=== PATIENT | female | born 1940 | race Caucasian/White ===

== ENCOUNTER → 2021-02-07 | Outpatient (CLI) | payer MEDICARE, BC | LOC: M.CT 10:56 | PROVIDERS: ATTEND Internal Medicine Cardiovascular Disease | DX: I35.0 Nonrheumatic aortic (valve) stenosis (principal); I25.10 Atherosclerotic heart disease of native coronary artery without angina pectoris; M47.814 Spondylosis without myelopathy or radiculopathy, thoracic region ==

== ENCOUNTER 2021-07-19 19:36 | Observation (INO) | payer MEDICARE, BC ==
[~2021-07-19] VITALS: Ht 170.2 cm; Wt 83.0 kg
--- NOTE | ~2021-07-19 | CON ---
[address] [address] CONSULTATION Name: JOSE ESQUIVEL Room: [place] [address] ADM IN M.R.#: [id number] Admission: 07/20/21 Attend Phys: Mildred Chavarria MD Discharge: Date of : 44 Report #: [id number] THIS REPORT FOR: cc: Matt Rinaldi MD, Matthew W. MD Blick, David R. MD [facility] ~ cc: Matt Rinaldi MD DATE OF CONSULTATION: 07/20/2021 CARDIOLOGY CONSULTATION HISTORY OF PRESENT ILLNESS: The patient is a 80-year-old white female who I was asked to see in the hospital after she had a dizzy spell. The history is obtained from the patient as well as some old records. The patient notes that her primary care physician, Dr. Rinaldi, noticed a heart murmur and referred her to Dr. Gilmore. She apparently had an echocardiogram that showed no significant valvular disease. She also had a carotid Doppler study that showed some plaque formation. On 06/26, she apparently felt lightheaded and fell and broke her ankle. She now has a boot. She did not require surgery. Because of this lightheaded spell and a fall, Dr. Gilmore had her wear a senior statistical programmer that was turned in last week. She was doing well until last night, she was at home when she again felt lightheaded and her caught her before she fell. She denied any recent vomiting, diarrhea or bleeding. She denied any recent fever or cough. She has had no significant chest pain. She apparently did have a stress test in the past that was unremarkable. She denies any history of exertional dyspnea, palpitations. Her called the ambulance last night. She was brought here for further evaluation and treatment. PAST MEDICAL HISTORY: She had tonsillectomy, appendectomy, shoulder surgery, hypertension, diabetes, hyperlipidemia. MEDICATIONS: Propranolol, simvastatin, Xanax for anxiety, amlodipine. ALLERGIES: SHE HAS A PREVIOUS INTOLERANCE TO MORPHINE. FAMILY HISTORY: Her father had a stroke. SOCIAL HISTORY: She is . She and her live in [place]. She stays active at home working on a treadmill and cutting wood. She quit smoking in 1984. Rarely drinks alcohol. REVIEW OF SYSTEMS: She has had no history of stroke, asthma, liver disease, kidney disease, cancer, psychiatric illness, [place] [address] CONSULTATION Name: JOSE ESQUIVEL Room: [address]#: [id number] Admission: 07/20/21 Attend Phys: Mildred Chavarria MD Discharge: Date of : 44 Report #: [id number] PHYSICAL EXAMINATION: GENERAL: Revealed an elderly female lying in a stretcher. She appeared in no distress. VITAL SIGNS: She had a blood pressure of 140/60, pulse is 90, she is afebrile. HEENT: She was anicteric. Conjunctivae pink. Mucous membranes moist. NECK: Veins not distended. Bilateral radiating systolic murmur noted in the carotids. Neck is supple. CHEST: Clear to auscultation. HEART: Regular rate and a grade 3 systolic ejection murmur along the left sternal border. ABDOMEN: Soft. EXTREMITIES: Had no edema. Dorsalis pedis pulse 1+ bilaterally. SKIN: Cool and dry. NEUROLOGIC: Nonfocal. DIAGNOSTIC DATA: Her ECG showed a sinus rhythm with T-wave inversion in lead aVL. Her workup in the Emergency Room last night, she had a CT scan of the head performed without contrast that showed no acute abnormality. She had a chest x-ray that showed normal heart size and clear lung butterfield. Carotid Doppler study performed today showed a 50-69% stenosis of the right internal carotid artery. LABORATORY DATA: Her lab work, creatinine 1.0. High-sensitivity troponin was only 22. Her hematocrit 38.5. Her COVID antigen stat test was negative. Urinalysis: Trace blood, negative for leukocytes. IMPRESSION AND RECOMMENDATIONS: 1. Lightheadedness spell, reason unclear. Okay to discharge the patient. She recently wore a senior statistical programmer. She is going to follow up with my partner, Dr. Gilmore, next week to review the monitor. 2. Diabetes. The patient is on insulin. 3. Hypertension. The patient is on a calcium paige and beta paige. 4. Hyperlipidemia. The patient is on a statin drug. 5. Moderate carotid stenosis. Recommend followup. 6. Aortic stenosis. The patient followed by Dr. Gilmore. I think it is reasonable at this time to discharge the patient from the Emergency Room and have her follow up with my partner, Dr. Gilmore, next week. By: [id number] [id number] Hernandez MD, [facility] /nt
[2021-07-19 19:39] VITALS: BP 162/138
[2021-07-19] MEDS ORDERED: NORVASC5 MG PO (19:48)
[2021-07-19] MEDS ORDERED: HUMALOG100 UNIT/1 SUBQ (19:48)
[2021-07-19] MEDS ORDERED: LANTUS SUBQ (19:48)
[2021-07-19] MEDS ORDERED: XANAX 0.5 MG0.5 M1 PO (19:49)
[2021-07-19] MEDS ORDERED: ZOCOR 20 MG TAB20 M1 PO (19:49)
[2021-07-19 20:10] LABS: ABSOLUTE BASOPHILS 0.1 thou/uL (0.0-0.2); ABSOLUTE EOSINOPHILS 0.3 thou/uL (0.0-0.7); ABSOLUTE MONOCYTES 0.9 thou/uL (0.0-1.2); ABSOLUTE NEUTROPHILS 6.7 thou/uL (1.6-8.1); BASOPHILS 0.9 %; EOSINOPHILS 3.4 %; HEMATOCRIT 38.5 % (37.0-47.0); HEMOGLOBIN 12.7 gm/dL (12.0-15.0); LYMPHOCYTES 19.7 %; MCH 30.7 pg (26.0-34.0); MCV 93.2 fL (80.0-100.0); MONOCYTES 8.9 %; MPV 7.3 fl. (7.2-11.1); NUCLEATED RBCS 0 /100WBC; PLATELET COUNT* 250 thou/uL (150-400); POLYS 67.1 %; RBC 4.13 mil/uL (4.20-5.00); RDW-CV 14.2 % (10.5-14.5)
[2021-07-19 20:11] LABS: URINE BILIRUBIN NEGATIVE (Negative); URINE BLOOD TRACE (Negative); URINE CLARITY CLEAR; URINE COLOR YELLOW; URINE GLUCOSE-RANDOM NEGATIVE (Negative); URINE KETONES NEGATIVE (Negative); URINE LEUKOCYTES-REFLEX NEGATIVE (Negative); URINE NITRITE-REFLEX NEGATIVE (Negative); URINE PROTEIN NEGATIVE (Negative); URINE SPECIFIC GRAVITY <= 1.005 (1.005-1.030); URINE UROBILINOGEN 0.2 E.U./dl (0.2-1.0)
[2021-07-19 20:14] LABS: CALCIUM 9.2 mg/dL (8.5-10.1); CREATININE 1.1 mg/dL (0.6-1.3); POTASSIUM 3.9 mmol/L (3.5-5.1)
[2021-07-19 20:18] LABS: ALBUMIN 3.6 g/dL (3.4-5.0); TOTAL BILIRUBIN 0.3 mg/dL (<0.1-1.0); TOTAL PROTEIN 8.9 g/dL (6.4-8.2)
[2021-07-20 01:00] VITALS: BP 125/62
[2021-07-20 05:00] VITALS: BP 138/58
[2021-07-20 09:18] LABS: ALBUMIN 3.1 g/dL (3.4-5.0); CALCIUM 8.6 mg/dL (8.5-10.1); POTASSIUM 4.1 mmol/L (3.5-5.1); TOTAL BILIRUBIN 0.3 mg/dL (<0.1-1.0); TOTAL PROTEIN 7.6 g/dL (6.4-8.2)
[2021-07-20 09:39] VITALS: BP 140/54
[2021-07-20 11:40] VITALS: BP 159/67
--- NOTE | 2021-07-20 12:51 | NUR ---
PT WAS GIVING HERSELF HER HOME INSULIN. PT INSTRUCTED THAT SHE CAN NOT DO THAT AND STAFF NEEDS TO ADMINISTER HER INSULIN. PT GAVE HERSELF 30U OF HUMOLOG AT BREAKFAST AND 25U OF INSULIN AT LUNCH. PT GLUCOSE AT 1250 IS 152
[2021-07-20 14:58] VITALS: BP 159/67
[2021-07-20 15:21] VITALS: BP 156/72
--- NOTE | 2021-07-20 16:40 | EKG ---
[place] [address] ELECTROCARDIOGRAM REPORT Name: JOSE ESQUIVEL Room: [address]#: [id number] Admission: 07/19/21 Attend Phys: Mildred Chavarria, Discharge: 07/20/21 Date of : 44 Date of Service: 07/[birth year]/211940 Report #: [id number] THIS REPORT FOR: //name// [facility] ED Test Date: 2021-07-19 Test Time: 19:43:16 Pat Name: JOSE ESQUIVEL Department: Room: [facility] Gender: F Bucket Chucker: : 1940 Requested By: Jeri Wu Order Number: [id number] MD: Garo Hernandez Measurements Intervals [place] Rate: 101 P: -57 WV: 231 QRS: 14 QRSD: 86 T: 80 QT: 325 QTc: 422 Interpretive Statements Sinus tachycardia Prolonged WV interval nonspecific st segment changes No previous ECG available for comparison Electronically Signed On 07-20-2021 16:40:44 RADIAL DRILL OPERATOR by Garo Hernandez [email or web address] <ELECTRONICALLY SIGNED> By: Garo Hernandez MD, FACC 07/20/21 1640 42 42 Garo Hernandez MD, FAC /EPI
[2021-07-21 05:06] LABS: GLYCOHEMOGLOBIN (HGB A1C) 7.2 % (4.8-5.6)
== END 2021-07-20 15:23 | disposition home or self-care (01) ==
LOC: M.ERS 19:36 → M.TBA 21:39 → M.ERS 21:39 → M.TBA-ER 21:39
PROVIDERS: Internal Medicine; Physician Assistant; ADMIT Internal Medicine; ATTEND Internal Medicine
DX: R42 Dizziness and giddiness (principal); R55 Syncope and collapse; Z20.822 Contact with and (suspected) exposure to COVID-19; E11.9 Type 2 diabetes mellitus without complications; F41.9 Anxiety disorder, unspecified; F43.9 Reaction to severe stress, unspecified; Z79.82 Long term (current) use of aspirin; Z79.84 Long term (current) use of oral hypoglycemic drugs; Z79.899 Other long term (current) drug therapy

== ENCOUNTER 2021-08-01 08:28 | Inpatient (IN) | payer MEDICARE, BC ==
[~2021-08-01] VITALS: Ht 170.2 cm; Wt 88.0 kg
[2021-08-01] VITALS (38 sets, daily range): BP systolic 65–142; BP diastolic 33–67
[~2021-08-01 08:28] MED LIST: HUMALOG100 UNIT/1 SUBQ; LANTUS SUBQ; NORVASC5 MG PO; PROPRANOLOL 1010 MG PO; XANAX 0.5 MG0.5 M1 PO; ZOCOR 20 MG TAB20 M1 PO
[2021-08-01 09:13] LABS: HEMATOCRIT 37.4 % (37.0-47.0); HEMOGLOBIN 12.3 gm/dL (12.0-15.0); MCH 30.2 pg (26.0-34.0); MCHC 32.8 g/dL (28.0-37.0); MPV 6.9 fl. (7.2-11.1); RBC 4.06 mil/uL (4.20-5.00); WBC 10.9 thou/uL (4.0-11.0)
[2021-08-01 09:22] LABS: CALCIUM 9.2 mg/dL (8.5-10.1); CREATININE 1.1 mg/dL (0.6-1.3); POTASSIUM 4.6 mmol/L (3.5-5.1)
[2021-08-01 09:25] LABS: APTT 25.6 Seconds (25.0-31.3); PROTIME 9.8 Seconds (9.20-11.50)
[2021-08-01 09:27] LABS: ALBUMIN 3.5 g/dL (3.4-5.0); TOTAL BILIRUBIN 0.4 mg/dL (<0.1-1.0); TOTAL PROTEIN 8.5 g/dL (6.4-8.2)
--- NOTE | 2021-08-01 12:24 | EKG ---
[place] [address] ELECTROCARDIOGRAM REPORT Name: JOSE ESQUIVEL Room: [place] [address] ADM IN M.R.#: [id number] Admission: 08/01/21 Attend Phys: Delta Gilmore, Discharge: Date of : 44 Date of Service: 08/01/21912 Report #: [id number] THIS REPORT FOR: //name// [facility] Test Date: 2021-08-01 Test Time: 09:13:51 Pat Name: JOSE ESQUIVEL Department: Room: [facility] Gender: F Roll Examiner: : 1940 Requested By: Delta Gilmore Order Number: [id number] Reading MD: Garo Hernandez Measurements Intervals [place] Rate: 57 P: 38 [place]: 287 QRS: -22 QRSD: 92 T: 83 QT: 434 QTc: 423 Interpretive Statements Sinus rhythm Prolonged [place] interval Probable left atrial enlargement Probable left ventricular hypertrophy Inferior infarct, old Compared to ECG 07/19/2021 19:43:16 Sinus tachycardia no longer present Electronically Signed On 08-01-2021 12:24:17 CONSTRUCTION SUPERVISOR by Garo Hernandez [email or web address] <ELECTRONICALLY SIGNED> By: Garo Hernandez MD, [facility] 08/01/21 1224 2 2 Garo Hernandez MD, [facility] /EPI
--- NOTE | 2021-08-01 13:20 | 2DMMODE ---
[place] [address] 2 D/M-MODE ECHOCARDIOGRAM Name: JOSE ESQUIVEL Room: [place] [address] ADM IN M.R.#: [id number] Admission: 08/01/21 Attend Phys: Delta Gilmore, Discharge: Date of : 44 Date of Service: 08/01/21 1320 Report #: [id number] THIS REPORT FOR: cc: Matt Rinaldi MD, Matthew W. MD Liston, Michael J. MD [facility] ~ APPROVED REPORT Study performed: 08/01/2021 11:06:59 EXAM: Limited 2D Echocardiogram Patient Location: IR Status: stat BSA: 1.95 HR: 91 bpm Indications Pacemaker check for tamponade Left Ventricle The left ventricle is normal size. There is normal LV segmental wall motion. Mild to moderate concentric left ventricular hypertrophy. The left ventricular systolic function is normal. LVEF is 65-70%. Aortic Valve Mild aortic valve sclerosis. Mitral Valve Moderate mitral annular calcification. Pericardium Mild to moderate effusion mostly posterior. Echocardiographic findings suggest early tamponade. <Conclusion> The left ventricle is normal size. Mild to moderate concentric left ventricular hypertrophy. The left ventricular systolic function is normal. LVEF is 65-70%. Mild aortic valve sclerosis. Moderate mitral annular calcification. Mild to moderate effusion mostly posterior that appears to exhibit [facility] [address] [place] [address] 2 D/M-MODE ECHOCARDIOGRAM Name: JOSE ESQUIVEL Room: [address] IN .R.#: [id number] Admission: 08/01/21 Attend Phys: Delta Gilmore, Discharge: Date of : 44 Date of Service: 08/01/21 1320 Report #: [id number] early tamponade. Mild to moderate effusion mostly posterior. Echocardiographic findings suggest early tamponade. <ELECTRONICALLY SIGNED> By: Delta Gilmore MD, FACC 08/01/21 1320 1320 132 Delta Gilmore MD, FACC /INF
[2021-08-01 13:42] LABS: HEMATOCRIT 33.9 % (37.0-47.0); HEMOGLOBIN 10.9 gm/dL (12.0-15.0); MCH 30.6 pg (26.0-34.0); MCHC 32.2 g/dL (28.0-37.0); MCV 94.8 fL (80.0-100.0); MPV 7.2 fl. (7.2-11.1); RBC 3.57 mil/uL (4.20-5.00); RDW-CV 14.1 % (10.5-14.5); WBC 11.9 thou/uL (4.0-11.0)
[2021-08-01 22:23] LABS: HEMATOCRIT 33.5 % (37.0-47.0); HEMOGLOBIN 10.7 gm/dL (12.0-15.0); MCH 30.6 pg (26.0-34.0); MCHC 31.9 g/dL (28.0-37.0); MCV 95.9 fL (80.0-100.0); MPV 7.1 fl. (7.2-11.1); RBC 3.49 mil/uL (4.20-5.00); RDW-CV 14.3 % (10.5-14.5); WBC 22.5 thou/uL (4.0-11.0)
[2021-08-01 22:30] LABS: CREATININE 1.6 mg/dL (0.6-1.3)
[2021-08-02] VITALS (99 sets, daily range): BP systolic 64–143; BP diastolic 32–72
--- NOTE | 2021-08-02 12:11 | 2DMMODE ---
[place] [address] 2 D/M-MODE ECHOCARDIOGRAM Name: JOSE ESQUIVEL Room: [facility] IN .R.#: [id number] Admission: 08/02/21 Attend Phys: Delta Gilmore, Discharge: Date of : 44 Date of Service: 08/02/21 1210 Report #: [id number] THIS REPORT FOR: cc: Matt Rinaldi MD, Matthew W. MD Blick, David R. MD [facility] ~ APPROVED REPORT Study performed: 08/02/2021 11:00:11 EXAM: Limited 2D Echocardiogram Patient Location: In-Patient Room #: 003 Status: routine BSA: 2.00 HR: 60 bpm BP: 105/49 mmHg Rhythm: NSR Other Information Study Quality: Good Indications Pericardial Effusion Left Ventricle The left ventricle is normal size. There is normal LV segmental wall motion. Mild concentric left ventricular hypertrophy. The left ventricular systolic function is normal. The left ventricular ejection fraction is within the normal range. LVEF is 65-70%. Right Ventricle The right ventricle is normal size. The right ventricular systolic function is normal. Pacemaker lead is present in the right ventricle. Atria Left atrium is dilated. The right atrium size is normal. Aortic Valve Mild aortic valve sclerosis. Mitral Valve Moderate mitral annular calcification. The mitral [place] [address] 2 D/M-MODE ECHOCARDIOGRAM Name: JOSE ESQUIVEL Room: [address] IN M.R.#: [id number] Admission: 08/02/21 Attend Phys: Delta Gilmore, Discharge: Date of : 44 Date of Service: 08/02/21 1210 Report #: [id number] Tricuspid Valve The tricuspid valve is normal in structure. Pulmonic Valve Pulmonic valve is not well visualized. Pericardium There is no pericardial effusion. <Conclusion> Mild concentric left ventricular hypertrophy. LVEF is 65-70%. Mild aortic valve sclerosis. There is no pericardial effusion. <ELECTRONICALLY SIGNED> By: Garo Hernandez MD, FACC 08/02/211209 09 09 Garo Hernandez MD, FACC /INF
--- NOTE | 2021-08-02 16:54 | EKG ---
[place] [address] ELECTROCARDIOGRAM REPORT Name: JOSE ESQUIVEL Room: [address] IN M.R.#: [id number] Admission: 08/02/21 Attend Phys: Delta Gilmore, Discharge: Date of : 44 Date of Service: 08/02/21 1358 Report #: [id number] THIS REPORT FOR: //name// [facility] Test Date: 2021-08-02 Test Time: 13:58:13 Pat Name: JOSEBria ESQUIVEL Department: Room: [facility] Gender: F Public Relations Associate: YOON : 1940 Requested By: Delta Gilmore Order Number: [id number] Reading MD: Garo Hernandez Measurements Intervals [place] Rate: 68 P: 33 [place]: 227 QRS: -16 QRSD: 95 T: 57 QT: 397 QTc: 423 Interpretive Statements Sinus rhythm Prolonged [place] interval Probable left atrial enlargement Abnormal R-wave progression, early transition Left ventricular hypertrophy Borderline ST elevation, inferior leads Compared to ECG 08/01/2021 09:13:51 ST (T wave) deviation now present Electronically Signed On 08-02-2021 16:54:07 BEFORE SCHOOL BABYSITTER by Garo Hernandez [email or web address] <ELECTRONICALLY SIGNED> By: Garo Hernandez MD, FACC 08/02/21 1654 1358 1358 Garo Hernandez MD, [facility] /EPI
[2021-08-03] VITALS (49 sets, daily range): BP systolic 86–118; BP diastolic 42–61
[2021-08-03 03:59] LABS: HEMATOCRIT 26.8 % (37.0-47.0); MCH 30.5 pg (26.0-34.0); MCHC 32.6 g/dL (28.0-37.0); MCV 93.3 fL (80.0-100.0); MPV 7.4 fl. (7.2-11.1); RBC 2.87 mil/uL (4.20-5.00); RDW-CV 14.2 % (10.5-14.5); WBC 18.8 thou/uL (4.0-11.0)
[2021-08-03 04:13] LABS: CALCIUM 8.4 mg/dL (8.5-10.1); CREATININE 1.3 mg/dL (0.6-1.3); POTASSIUM 4.8 mmol/L (3.5-5.1)
[2021-08-03 04:39] LABS: HEMOGLOBIN 8.7 gm/dL (12.0-15.0)
--- NOTE | 2021-08-03 12:23 | CARD ---
[address] [address] CARDIAC CATH REPORT Name: JOSE ESQUIVEL Room: [address] IN ..#: [id number] Admission: 08/02/21 Attend Phys: Delta Gilmore MD Discharge: Date of : 44 Report #: [id number] THIS REPORT FOR: cc: Matt Rinaldi MD, Matthew W. MD Liston, Michael J. MD [facility] ~ APPROVED REPORT Study performed: 08/01/2021 09:33:05 Event Personnel: Head Control Clerk, Delta Gilmore MD, Jessica Dean RN, Marlen Acevedo RTR Scrub, Fabiola Shetty RTR Monitor Exam: Insertion of Dual Chamber Permanent Pacemaker Indications: Sinus node dysfunction/sinus node arrest with syncope The patient is a 80 year-old female with a history of Sinus node dysfunction and sinus node arrest. Conscious Sedation Start time: 10:07 End Time: 10:41 Fentanyl 25.0 mcg Versed 1.0 mg Implanted Devices: PPM Generator: Hydrophironik Edora 8 DR-T SN:[id number] Lead: Biotronik Solia S 60 SN:[id number] Lead: Biotronik Solia S 53 SN:[id number] Procedure The patient underwent informed consent. We discussed the details of the procedure including the risks, which include, but not limited to bleeding, infection, vascular damage, cardiac perforation, and pneumothorax. She understood these risks and was willing to proceed. As such, she was brought to the EP/Cardiac Catheterization laboratory in a fasting and sedated state and prepped and draped in a sterile fashion, received IV antibiotics prior to initiation of the procedure and a venogram was performed showing patency of the left axillary vein. The patient underwent conscious sedation, with no related complications. The patient was brought to the EP/Cardiac Catheterization laboratory and the left chest and shoulder were prepped and draped in a sterile manner. During this case, Fluoroscopy [place] [address] CARDIAC CATH REPORT Name: JOSE ESQUIVEL Room: [address] IN [facility]#: [id number] Admission: 08/02/21 Attend Phys: Delta Gilmore MD Discharge: Date of : 44 Report #: [id number] imaging. IV conscious sedation was used throughout procedure with appropriate monitoring and was performed in the presence of a registered nurse who was an independent trained observer other than the physician performing the procedure. The left subclavian region was infiltrated with 2% Lidocaine with Epinephrine subcutaneous anesthesia. A transverse incision was made in the left upper chest cavity. The subcutaneous pocket was formed via blunt dissection. Percutaneous venous access was achieved and an introducer sheath was inserted into the left Subclavian vein. Through the introducer sheaths the atrial and ventricular lead wires were positioned in the right atrial appendage and right ventricular apex respectively. Capturing and sensing thresholds were verified. The leads were then secured within the device pocket using the designated cuff and 0 silk suture. A dual-chamber pulse generator was attached to the atrial and ventricular leads. The device pocket was flushed with antibiotic solution. The device and redundant lead were then placed within the pocket. The deep tissues were closed with interrupted stitches of 2-0 Vicryl. The skin incision was then closed with a single subcuticular stitch of 4-0 Vicryl. Several Steri-Strips were placed across the incision. A sterile Telfa dressing was then covered with a Tegaderm. Electrode Parameters P Wave: 4.0 mV R Wave: 71 1 mV Atrial Threshold: 1.6 V at 0.40 ms Ventricular Threshold: 0.5 V at 0.40 ms Atrial Resistance: 543 ohms Ventricular Resistance: 990 ohms Dual Chamber The atrial and ventricular leads were then secured using 0 silk sutures. The subcutaneous pocket was irrigated with ancef antibiotic solution.The atrial and ventricular leads were attached to the appropriate receptacles on the pulse generator and set screws firmly tightened to insure adequate contact and stability. The lead and pulse generator were placed into the subcutaneous pocket. Sharp and sponge counts were confirmed to be correct. At this time the pocket was closed subcutaneously with a 2.0 Vicryl and the skin was closed with a 4.0 Vicryl. The operative site was dressed in sterile fashion with Benzoin spray, Steri strips, telfa, and tegaderm and the patient [place] [address] CARDIAC CATH REPORT Name: JOSE ESQUVIEL Room: [address] IN [facility].#: [id number] Admission: 08/02/21 Attend Phys: Delta Gilmore MD Discharge: Date of : 44 Report #: [id number] condition. Complications The patient tolerated the procedure well and there were no complications associated with the procedure. Findings Specimens Removed: No Estimated Blood Loss: 5 ml 1. Sinus node dysfunction with sinus node arrest and syncope. 2. Successful placement of a dual-chamber pacemaker with atrial and ventricular lead placement. Conclusion 1. Follow-up site check in 1 week. 2. Follow-up device interrogation in 4 to 6 weeks. Post procedure the patient was noted to have moderate hypotension. Echocardiogram revealed posterior pericardial effusion with mild signs of tamponade. The patient was referred for pericardiocentesis. <ELECTRONICALLY SIGNED> By: Delta Gilmore MD, FACC 08/03/21 1222 122 21Micalcides Gilmore MD, FACC /INF
== END 2021-08-03 16:05 | disposition home health service (06) | DRG 242 ==
LOC: M.CL 08:28 → M.TBA-CV 11:37 → M.ICU 17:19
PROVIDERS: ADMIT Internal Medicine Cardiovascular Disease; ATTEND Internal Medicine Cardiovascular Disease
DX: I49.5 Sick sinus syndrome (principal); J96.01 Acute respiratory failure with hypoxia; I31.4 Cardiac tamponade; I31.3 Pericardial effusion (noninflammatory); I45.5 Other specified heart block; I95.9 Hypotension, unspecified; I10 Essential (primary) hypertension; E78.2 Mixed hyperlipidemia; I35.0 Nonrheumatic aortic (valve) stenosis; E11.9 Type 2 diabetes mellitus without complications; Z79.4 Long term (current) use of insulin; Z90.49 Acquired absence of other specified parts of digestive tract; Z98.49 Cataract extraction status, unspecified eye; Z90.710 Acquired absence of both cervix and uterus; Z82.49 Family history of ischemic heart disease and other diseases of the circulatory system; Z82.3 Family history of stroke; Z87.891 Personal history of nicotine dependence; Z79.899 Other long term (current) drug therapy; Z88.1 Allergy status to other antibiotic agents; Z88.5 Allergy status to narcotic agent; Z88.2 Allergy status to sulfonamides; Z88.8 Allergy status to other drugs, medicaments and biological substances